=== PATIENT | male | born 1975 | race Caucasian/White ===

== ENCOUNTER 2020-04-29 12:30 | Inpatient (IN) | payer OTHER, SELFPAY ==
[2020-04-29] VITALS (14 sets, daily range): BP systolic 90–130; BP diastolic 39–75; PULSE 63–109; RESP 14–82; TEMP 36.4–39.4; O2SAT 90–95; BMI 27.3
--- NOTE | 2020-04-29 12:39 | W.ED.MEDCLER ---
HPI - Medical Clearance General Chief complaint: Abdominal Pain Stated complaint: RUPTURED APPENDIX Time Seen by Provider: 04/29/20 12:35 Related Information Home Medications Medication Instructions Recorded Confirmed Horse Antibiotic See Rx Instructions .ROUTE .COMPLEX 04/29/20 04/29/20 ibuprofen See Rx Instructions .ROUTE .COMPLEX 04/29/20 04/29/20 multivitamin [Multiple Vitamins] 1 tab PO DAILY 04/29/20 04/29/20 Allergies Allergy/AdvReac Type Severity Reaction Status Date / Time No Known Allergies Allergy Verified 04/29/20 12:40 Course Course Patient was transferred here from [place] [facility] with a ruptured appendix. He is going straight to the OR with Dr. Crooks. He has no exposure to COVID, no cough. He is febrile consistent with his diagnosis of ruptured appendix. Vital Signs Temperature 99.0 F 04/30/20 08:00 Pulse Rate 86 04/30/20 08:00 Respiratory Rate 16 04/30/20 08:00 Blood Pressure 132/80 04/30/20 08:00 Pulse Oximetry 93 04/30/20 08:00 MDM - Medical Clearance Lab Data Result diagrams: 04/30/20 02:45 04/30/20 02:45 Discharge Plan Discharge Patient Disposition: Placed in Observation Admit Provider: Claudio Crooks Clinical Impression: Appendicitis with perforation Condition: Stable Discharge Date/Time: 04/29/20 12:55
--- NOTE | 2020-04-29 12:59 | ANES.PREANE2 ---
Pre-Anesthetic Assessment Pre-Anesthetic Assessment: Height/Weight: Height 1.93 m Weight 102.058 kg Temp Pulse Resp BP Pulse Ox 103.0 F H 108 H 16 120/66 93 04/29/20 12:40 04/29/20 12:40 04/29/20 12:40 04/29/20 12:40 04/29/20 12:40 Preop Diagnosis: appendicitis Proposed Procedure: Laparoscopic appendectomy Familial anesthetic complications: none Last intake: Intake gatorade Last Liquid Date 04/29/20 Last Liquid Time 07:00 Last Solid Date 04/29/20 Last Solid Time 07:00 Social: Social History: Tobacco and No alcohol Exam: Pre-Anes Outpt Exam: alert, oriented x 3, clear to auscultation bilaterally and regular rate & rhythm Airway: Cervical ROM: WNL MP: 3 Dentition: Full Pulmonary: Pulmonary: None reported CV/HEM: CV/HEM: None reported : : None reported Hepatic: Hepatic: None reported Metabolic: Metabolic: None reported Musc/skel: Musc/skel: None reported Anesthetic Plan: ASA status: 1E Anesthesia: General Risk of > 500 ml blood loss (7ml/kg in children): No Data Anesthesia Cardiac Studies: No Data to Display
[2020-04-29] MEDS: sodium chloride 0.9% 1,000 ML 30 ML IV (13:22)
--- NOTE | 2020-04-29 14:27 | PM.HP ---
Providers/Chief Complaint Admitting Physician: Rowdy Crooks Chief Complaint: RUPTURED APPENDIX History of Present Illness DEJON ROMERO is a 45 year old male who presented to the [facility] with 2-day history of abdominal pain nausea and vomiting. Patient is virtually from [place] and is visiting here on vacation. He states that he started having severe pain 2 days prior with associated nausea and vomiting but he did not do anything about it. Today he came to the ER at an outside facility with persistent pain and a CT scan that showed a perforated acute appendicitis with contained abscess. He denies any diarrhea but has been constipated. No fevers though he has been febrile in the preop area. Review of Systems General: Reports: 10 or more systems reviewed and unremarkable except in HPI and below Medications/Allergies Home Medications Medication Instructions Recorded Confirmed Last Taken Type Horse Antibiotic See Rx Instructions .ROUTE .COMPLEX 04/29/20 04/29/20 04/27/20 History ibuprofen See Rx Instructions .ROUTE .COMPLEX 04/29/20 04/29/20 04/28/20 History multivitamin [Multiple Vitamins] 1 tab PO DAILY 04/29/20 04/29/20 Unknown History Allergies Allergy/AdvReac Type Severity Reaction Status Date / Time No Known Allergies Allergy Verified 04/29/20 12:40 PFSH Acute PFSH: Surgical History Status post left inguinal hernia repair Vitals/I&O/Wt Last Vital Signs Temp 101 F H 04/29/20 13:15 Pulse 101 H 04/29/20 13:15 Resp 18 04/29/20 13:15 BP 111/63 04/29/20 13:15 Pulse Ox 93 04/29/20 13:15 Weight last 48 hrs Weight 225 lb Physical Exam Narrative: EXAM NARRATIVE: HEENT: Normocephalic Eye: Sclera /conjunctiva normal Respiratory and chest: Bilateral clear breath sounds on auscultation Cardiovascular: Normal S1 and S2 heart sounds Abdomen: Soft to palpation, tender right lower quadrant, guarding present, no rigidity Neurological: Oriented to place person and time Skin: Intact, no lesions appreciated on gross exam A&P Assessment and plan (1) Appendicitis with perforation: 45-year-old male with right lower quadrant pain with leukocytosis and CT scan showing perforated appendicitis with contained abscess. Patient is hemodynamically stable. Plan for laparoscopic possible open appendectomy and drainage of abscess. Discussed with the patient the possibility that sometimes the appendix cannot be identified in acute appendicitis and we might just drain the abscess. Risks associated with surgery including infection, bleeding, bowel injury, staple line leak, abscess, small bowel obstruction have been discussed with the patient. Status: Acute Attestations Medical Necessity Statement*: Patient will need inpatient stay after surgery to ensure resolution of leukocytosis and to ensure that he does not develop any complications Coding Level of Care Code Acute Ammonia Still Operator for Jared Vu Diagnoses Appendicitis with perforation K35.32
--- NOTE | 2020-04-29 15:58 | P.OP_ITS ---
Operative Report Date of procedure: April 29, 2020 Pre-op Diagnosis: Acute perforated appendicitis Post-op Findings: Perforated gangrenous appendicitis Procedure Done: Laparoscopic appendectomy Pathology: Appendix Surgeon: Claudio Crooks Anesthesia: General Condition: stable Disposition: PACU Procedure: The patient was taken to the Operating Room and intubated under general anesthesia after antibiotic had been administered. Using a 15 blade, a 1-cm infraumbilical incision was made and using open Carlos technique, the peritoneal cavity was entered. A 12mm port with balloon was placed and 14 mm of pneumoperitoneum was created and 10-mm 30 degree scope was introduced. Two separate 5mm ports were placed in the left and right lower quadrant under direct visualization. The cecum was rotated medially revealing a gangrenous appendix with perforation and fecal contamination of the right paracolic gutter. This was irrigated and suctioned out.. Using [place] forceps, an opening was made in the mesoappendix near the base of the appendix. The mesoappendix was gently peeled away from the paracolic gutter using suction attendant coin operated laundry. An Endo MAREN stapler 45mm long 3.5mm blue load was introduced to divide the appendix at it's base. Using electrocautery, the mesoappendix including the appendicular artery was divided. There was no bleeding noted and the staple line appeared intact. The right lower quadrant was irrigated with saline and an EndoCatch bag was introduced to remove the appendix. A stab incision was made in the right lower quadrant and a 10 flat UMBERTO drain was introduced and placed within the paracolic gutter on the right side. Drain was sutured using 3-0 nylon. All three ports were removed under direct visualization and there was no bleeding noted on the port sites. The fascia at the umbilical port was closed using figure of eight 0- Vicryl sutures and subcutaneous tissue was approximated using 3-0 Vicryl and skin at all 3 port sites was closed using 4-0 Monocryl and Dermabond.
[2020-04-29] MEDS: D5-NS 0.45% + KCL 20 mEq 20 MEQ/1,000 ML BAG 125 MEQ IV (17:05)
[2020-04-29] MEDS: famotidine 20 mg/2 mL INJ IVP (17:06)
[2020-04-29] MEDS: docusate sodium 100 mg Capsule PO (18:43)
[2020-04-29] MEDS: piperacillin-tazobactam 3.375 GM in sodium chloride 0.9% (plus) 50 ML IV (18:43)
[2020-04-29] MEDS: sennosides 8.6 mg Tablet 17.2 MG PO (21:55)
[2020-04-30] MEDS: D5-NS 0.45% + KCL 20 mEq 20 MEQ/1,000 ML BAG 125 MEQ IV ×3 (01:40→16:59)
[2020-04-30] MEDS: piperacillin-tazobactam 3.375 GM in sodium chloride 0.9% (plus) 50 ML IV ×3 (03:07→17:00)
[2020-04-30 03:09] LABS: Basophils % 0.2 %; Eosinophils % 0.2 %; Hematocrit 38.4 % (42.0-52.0); Hemoglobin 12.9 g/dL (11.7-16.6); Lymphocytes # 0.5 10^3/uL (0.8-4.8); Lymphocytes % 2.6 %; Mean Corpuscular HGB Conc 33.6 g/dL (30.0-36.0); Mean Corpuscular Hemoglobin 35.3 pg (28.0-34.0); Mean Corpuscular Volume 105.2 fL (80-94); Monocytes % 5.4 %; Neutrophils # 16.07 10^3/uL (1.8-7.7); Neutrophils % 89.7 %; Nucleated Red Blood Cells % 0 %; Platelet Count 65 10^3/cmm (130-400); Red Blood Count 3.65 10^6/uL (4.1-5.3); Red Cell Distribution Width 12.5 % (12.1-15.1); White Blood Count 17.9 10^3/uL (4.0-10.0)
[2020-04-30 03:14] VITALS: BP 108/71; PULSE 79; RESP 16; TEMP 36.6; O2SAT 96
[2020-04-30 03:35] LABS: Anion Gap 9.6 (5-19); Blood Urea Nitrogen 10 mg/dL (6-20); Calcium 8.1 mg/dL (8.5-10.5); Carbon Dioxide 26 mmol/L (22-29); Chloride 104 mmol/L (98-107); Glomerular Filtration Rate 65.5 mL/min (90-130); Glucose 197 mg/dL (65-115); Osmolality Calculated 281 mOsm/kg (285-295); Potassium 4.6 mmol/L (3.5-5.1); Sodium 135 mmol/L (136-145)
[2020-04-30] MEDS: famotidine 20 mg/2 mL INJ IVP ×2 (03:51→17:00)
[2020-04-30 03:56] VITALS: RESP 16
[2020-04-30 04:33] LABS: Slide Review Slide Review Perform
[2020-04-30 08:00] VITALS: BP 132/80; PULSE 86; RESP 16; TEMP 37.2; O2SAT 93
[2020-04-30] MEDS: docusate sodium 100 mg Capsule PO ×2 (08:54→17:00)
--- NOTE | 2020-04-30 11:18 | PC.CHAP ---
Pastoral Care Encounter/Spiritual Assessment Type of Contact [x] Declined glass belt sander visit [] Patient/Family/Request visit [] Outpatient visit [] Follow-up visit [] Physician referral [] Code/Alert [] Routine visit [] Staff referral [] Actively dying [] Patient sleeping [] Family support [] [] Out of room [] Palliative care [] [] Receiving care in room [] Pre-surgical visit [] Trauma [] Long length of stay [] ICU visit [] Other: Relational/Emotional Strength [] Patient feels connected with others/family/visitors/staff [] Distress [] Loneliness/isolation [] Abandonment Spirituality of Patient [] Person of Mindy [] Attends Protestant of their Mindy [] Believes in Prayer [] Reads Bible or Christianity materials [] There are Spiritual issues to be addressed Fruit Worker Interventions [x] Prayer [x] Active listening [x] Non-anxious presence [] Spiritual/emotional support [] Crisis/trauma care [] Spiritual counseling [] Bereavement support [] Provided bereavement packet [] Provided Bible/devotional materials [] Provided toy/stuffed animal, coloring book to patient or family member [] Provided Communion [] Anointing/[place] [] Salvation [] Completed spiritual assessment [] Other: Impact on Illness or Injury [] Angry [] Fearful [] Anxious [] Often cries [] Exhaustion [] Unable to work [] Unable to attend congregational [] Unable to walk/stand [] Unable to read [] Unable to drive [] Unable to eat/drink [] Unable to sleep [] Unable to be with family [] Patient intubated [x] Other: Summary Patient declined visit but allowed prayer to be provided. Time spent with patient 5 minutes
[2020-04-30 11:44] VITALS: BP 109/69; PULSE 78; RESP 14; TEMP 37.3; O2SAT 96
[2020-04-30] MEDS: HYDROcodone-acetaminophen 5-325 mg Tablet 1 TAB PO (14:58)
[2020-04-30 16:00] VITALS: BP 126/66; PULSE 81; RESP 16; TEMP 36.6; O2SAT 96
--- NOTE | 2020-04-30 18:38 | PC.NURSE ---
SHIFT SUMMARY PATIENT HAS AMBULATED SEVERAL TIMES TODAY. HIS UMBERTO DRAIN HAS ONLY PUT OUT 10ML. PAIN CONTROLLED. PATIENT WANTED TO LEAVE AND THIS NURSE EXPLAINED TO HIM THAT IF HE LEFT AMA, HIS INSURANCE MIGHT NOT PAY FOR HIS STAY. AT BEDSIDE AT THIS TIME. DR. CARREON WANTED PATIENT TO STAY ANOTHER NIGHT AND REPEAT WBC IN THE MORNING DUE TO HIS WBC STILL BEING ELEVATED. PATIENT STATED HE ISN'T HAPPY WITH THIS DECISION, BUT AGREED TO STAY. PATIENT CURRENTLY RESTING IN BED.
[2020-04-30 19:44] VITALS: BP 108/70; PULSE 65; RESP 17; TEMP 36.8; O2SAT 95
[2020-04-30] MEDS: sennosides 8.6 mg Tablet 17.2 MG PO (21:42)
[2020-05-01] VITALS: BP 131/87; PULSE 58; RESP 14; TEMP 36.9; O2SAT 94
[2020-05-01] MEDS: D5-NS 0.45% + KCL 20 mEq 20 MEQ/1,000 ML BAG 125 MEQ IV (00:10)
[2020-05-01] MEDS: piperacillin-tazobactam 3.375 GM in sodium chloride 0.9% (plus) 50 ML IV (03:05)
[2020-05-01 03:58] VITALS: BP 125/80; PULSE 72; RESP 18; TEMP 37; O2SAT 94
[2020-05-01 04:52] LABS: Basophils % 0.2 %; Eosinophils % 0.2 %; Hematocrit 35.6 % (42.0-52.0); Hemoglobin 11.5 g/dL (11.7-16.6); Lymphocytes # 1.4 10^3/uL (0.8-4.8); Lymphocytes % 11.1 %; Mean Corpuscular HGB Conc 32.3 g/dL (30.0-36.0); Mean Corpuscular Hemoglobin 34.4 pg (28.0-34.0); Mean Corpuscular Volume 106.6 fL (80-94); Monocytes # 0.8 10^3/uL (0.2-0.9); Monocytes % 5.9 %; Neutrophils # 10.57 10^3/uL (1.8-7.7); Nucleated Red Blood Cells % 0 %; Platelet Count 45 10^3/cmm (130-400); Red Blood Count 3.34 10^6/uL (4.1-5.3); Red Cell Distribution Width 12.5 % (12.1-15.1); White Blood Count 12.9 10^3/uL (4.0-10.0)
[2020-05-01] MEDS: famotidine 20 mg/2 mL INJ IVP (04:53)
[2020-05-01 05:17] LABS: Anion Gap 9.6 (5-19); Blood Urea Nitrogen 11 mg/dL (6-20); Calcium 8.6 mg/dL (8.5-10.5); Carbon Dioxide 24 mmol/L (22-29); Chloride 106 mmol/L (98-107); Glomerular Filtration Rate 80.8 mL/min (90-130); Glucose 126 mg/dL (65-115); Osmolality Calculated 278 mOsm/kg (285-295); Potassium 4.6 mmol/L (3.5-5.1); Sodium 135 mmol/L (136-145)
[2020-05-01 06:19] LABS: Slide Review Slide Review Perform
[2020-05-01 08:00] VITALS: BP 125/80; PULSE 72; RESP 18; TEMP 37; O2SAT 94
[2020-05-01 08:26] VITALS: BP 125/80; PULSE 72; RESP 18; TEMP 37; O2SAT 94
--- NOTE | 2020-05-01 12:42 | P.PN_ITS ---
Subjective Subjective: Interval history: Date of service: 04/30/2020 Patient states abdominal pain is minimal, has not had a BM but passing flatus. No nausea or vomiting. Patient keen to get out of the hospital due to anxiety Medications: Reviewed: Yes Vitals/I&O/Wt Last Vital Signs Temp 98.6 F 05/01/20 08:26 Pulse 72 05/01/20 08:26 Resp 18 05/01/20 08:26 BP 125/80 05/01/20 08:26 Pulse Ox 94 05/01/20 08:26 04/30/20 05/01/20 05/01/20 22:59 06:59 14:59 Intake Total 1650 / 4972.084 1197.917 / 4972.084 300 / 300 Output Total 1030 / 2540 50 / 2540 Balance 620 / 2432.084 1147.917 / 2432.084 300 / 300 Physical Exam Narrative: EXAM NARRATIVE: Abdomen: Soft, nondistended, UMBERTO drain output is serosanguineous Data : 05/01/20 04:10 05/01/20 04:10 A&P Assessment and plan (1) Appendicitis with perforation: 45-year-old male status post laparoscopic appendectomy for perforated appendicitis doing well WBC is down to 17, will need 24 more hours of IV antibiotics to ensure resolution of leukocytosis and the patient remains afebrile Advance to full liquid diet Status: Resolved Attestations 2 Medical Necessity Statement*: Acute perforated appendicitis requiring 24 more hours of IV antibiotics Coding Level of Care Code Acute Customer Support Coordinator for abdoulaye Vu Diagnoses Appendicitis with perforation K35.32
--- NOTE | 2020-05-01 12:42 | P.DS_ITS ---
Discharge Providers Date of Admission: 04/29/20 16:00 Date of Discharge: May 01, 2020 Attending Provider at Admission: Claudio Crooks MD Attending Provider at Discharge: Claudio Crooks MD Diagnoses at Discharge Discharge Diagnosis (1) Appendicitis with perforation: Status: Resolved Reason for Visit Reason for Visit: RUPTURED APPENDIX Hospital Course Hospital Course: This is a 45-year-old male who is visiting [place] from [place] and presented to the ER with severe right lower quadrant pain. CT scan showed acute appendicitis with perforation. Patient underwent laparoscopic appendectomy where he was noted to have perforated gangrenous appendix. Patient was treated with IV antibiotics since his white count initially was 24,000. Over the next 2 days he had return of bowel function, he was afebrile and hemodynamic stable. His white count is down to 12.9 at time of discharge. Physical Exam Narrative: EXAM NARRATIVE: Abdomen: Soft, nondistended, minimally tender, incision clean dry and intact Discharge Data Data Completed and Pending: Pending at discharge Category Date Time Status ES surgery / GI i mages Routine Exams 04/29/20 14:11 Taken Pathology: Surgic al [PTH] Routine Pth 04/29/20 15:59 Received Labs from last 24 hours 05/01/20 05/01/20 04:10 04:10 WBC 12.9 H RBC 3.34 L Hgb 11.5 L Hct 35.6 L MCV 106.6 H MCH 34.4 H MCHC 32.3 RDW 12.5 Plt Count 45 L MPV Not Reportable Neut % (Auto) 82.0 Lymph % (Auto) 11.1 [place] % (Auto) 5.9 Eos % (Auto) 0.2 Baso % (Auto) 0.2 Neut # (Auto) 10.57 H Lymph # (Auto) 1.4 [place] # (Auto) 0.8 Eos # (Auto) 0.0 Baso # (Auto) 0.0 Nucleated RBC % (a uto) 0 Nucleated RBCs # 0.0 Sodium 135 L Potassium 4.6 Chloride 106 Carbon Dioxide 24 Anion Gap 9.6 BUN 11 Creatinine 1.0 GFR Calculation 80.8 L Glucose 126 H Calculated Osmolal ity 278 L Calcium 8.6 Vitals: Last Vital Signs Temp 98.6 F 05/01/20 08:26 Pulse 72 05/01/20 08:26 Resp 18 05/01/20 08:26 BP 125/80 05/01/20 08:26 Pulse Ox 94 05/01/20 08:26 Discharge Plan Discharge Patient Disposition: Home Condition: Stable Prescriptions: New Wishon 5-325 mg tablet 1 tab PO Q6H 7 Days Qty: 20 RF: 0 Flagyl 500 mg tablet 500 mg PO Q8H 7 Days Qty: 21 RF: 0 Colace 100 mg capsule 100 mg PO BID Qty: 30 RF: 0 Levaquin 750 mg tablet 750 mg PO DAILY 7 Days RF: 0 Continued Multiple Vitamins Tablet 1 tab PO DAILY RF: 0 ibuprofen 200 mg Tablet See Rx Instructions .ROUTE .COMPLEX RF: 0 Discontinued Horse Antibiotic See Rx Instructions .ROUTE .COMPLEX RF: 0 Discharge Orders: Discharge Order (Routine); Ordered 05/01/20 Ordered By: Claudio Crooks Referrals: Claudio Crooks MD [Physician] - 2 weeks Discharge Diet: Advance as tolerated Patient Instructions: Metronidazole (By mouth), Laxative, Stool Softeners (By mouth), Levofloxacin (By mouth), Hydrocodone (By mouth), Appendicitis (DC), Laparoscopic Appendectomy (DC) Activity Restrictions/Additional Instructions: 1. Up and walking as tolerated. 2. Ok to shower in 48 hours after surgery. 3. Remove Dermabond dressing in 7-10 days. 4. Do not lift more than 10 pounds. 5. Do not operate heavy machinery or drive while using pain medications. 6. Advised to return to ER or contact my office if there are any signs of infection like, increasing pain, fevers, chills, redness or drainage of pus. Discharge Date/Time: 05/01/20 08:27 Discharge Attestations Time Spent in Discharge Care*: less than 30 min Quality Metrics Clinical Quality Measures During this hospital stay, did patient experience: None Coding Level of Care Code Acute Hogshead Liner for Jared Vu Diagnoses Appendicitis with perforation K35.32
--- NOTE | 2020-05-01 12:42 | PM.PN ---
Subjective Subjective: Interval history: Patient has been doing well denies any pain, had a bowel movement today, no nausea or vomiting. Tolerating liquid diet Vitals/I&O/Wt Last Vital Signs Temp 98.6 F 05/01/20 08:26 Pulse 72 05/01/20 08:26 Resp 18 05/01/20 08:26 BP 125/80 05/01/20 08:26 Pulse Ox 94 05/01/20 08:26 04/30/20 05/01/20 05/01/20 22:59 06:59 14:59 Intake Total 1650 / 4972.084 1197.917 / 4972.084 300 / 300 Output Total 1030 / 2540 50 / 2540 Balance 620 / 2432.084 1147.917 / 2432.084 300 / 300 Physical Exam Narrative: EXAM NARRATIVE: Abdomen: Soft, nondistended, minimally tender, UMBERTO drain output is serosanguineous Data : 05/01/20 04:10 05/01/20 04:10 A&P Assessment and plan (1) Appendicitis with perforation: 45-year-old male status post laparoscopic appendectomy for perforated appendicitis doing well UMBERTO drain removed today DC home today on oral antibiotics Status: Acute Attestations Medical Necessity Statement*: Status post appendectomy, DC home today Coding Level of Care Code Acute Tar Heater Operator for Jared Vu Diagnoses Appendicitis with perforation K35.32
== END 2020-05-01 08:27 | disposition home or self-care (01) | DRG 340 ==
LOC: ER 12:38 → OPS 12:39 → MEDSURG 15:49
PROVIDERS: Admitting Provider Surgery; Visit Provider Surgery
PROC: 0DTJ4ZZ Resection of Appendix, Percutaneous Endoscopic Approach (ICD-10-PCS; CPT 44970; principal; 2020-04-29 15:45)
DX: K35.32 Acute appendicitis with perforation, localized peritonitis, and gangrene, without abscess (principal)
CPT/HCPCS: 12345; 36415; 80048; 85025; 88304; 96375; 99282; G0378; J0131; J2543; J2704; J2710; J3010; J3490; J7030